=== PATIENT | male | born 1940 | race Caucasian/White ===

== ENCOUNTER 2018-12-06 10:04 | Day surgery (SDC) | payer MEDICARE, BC ==
[~2018-12-06] VITALS: Ht 167.6 cm; Wt 80.7 kg
[2018-12-06] VITALS (13 sets, daily range): BP systolic 101–137; BP diastolic 56–70; PULSE 53–100; RESP 13–22; Ht 167.6 cm; Wt 80.7 kg
--- NOTE | 2018-12-06 12:32 | PREAC ---
Date/Time of Note Date/Time of Note DATE: 12/06/18 TIME: 12:31 Anesthesia Eval and Record Evaluation Time Pre-Procedure Interview DATE: 12/06/18 TIME: 12:31 Age 78 Sex male NPO: 8 hrs Preoperative diagnosis AFIB Planned procedure MAMTA, cardioversion Past Medical History Past Medical History: Includes Cardio: HTN, Dyslipidemia, CAD, Arrythmia (afib), CHF Heme: Other (on eliquis) Surgery & Anesthesia Issues No known issue Meds Anticoagulation: No Beta Norman within 24 hr: No Reason Beta Norman not given: Pt. not on B-Norman Meds reviewed: Yes Allergies Coded Allergies: No Known Allergy (Unverified , 12/06/18) Allergies Reviewed: Yes Labs/Studies Labs Reviewed: Reviewed by anesthesiologist Result Diagram: 12/06/18 1126 Laboratory Tests 12/06/18 11:26 test: N/A Studies: ECG, CXR, 2D Echo Pre-procedure Exam Last vitals Vital Signs Date Temp Pulse Resp B/P (MAP) Pulse Ox O2 O2 Flow FiO2 Time Delivery Rate 12/06/18 98.8 53 18 137/65 98 Room Air 11:40 (89) Airway: Adequate mouth opening, Adequate thyromental dist Mallampati: Mallampati III Teeth: Normal Lung: Normal Heart: Normal ASA Physical Status ASA physical status: 4 Emergency: None Planned Anesthetic General/MAC: MAC Planned Pain Management Parenteral pain med Pre-operative Attestations Prior to commencing anesthesia and surgery, the patient was re-evaluated, there was verification of: *The patient's identity *The results of appropriate recent lab work and preoperative vital signs *The above evaluation not changing prior to induction *Anesthetic plan, risk benefits, alternative and complications discussed with patient/family; questions answered; patient/family understands, accepts and wishes to proceed. FATOU WALLACE MD Dec 06, 2018 12:32
[2018-12-06] MEDS ORDERED: ETOMIDATE 20 MG INJ ONE ×2 (12:35→12:36)
[2018-12-06] MEDS ORDERED: PROPOFOL 100 ML ONE (12:36)
[2018-12-06] MEDS ORDERED: APIX5TAB PO (13:41)
[2018-12-06] MEDS ORDERED: TAMS-14 PO (13:42)
[2018-12-06] MEDS ORDERED: LOSA25TA12 PO (13:42)
--- NOTE | 2018-12-06 13:55 | CARRPT ---
DATE OF PROCEDURE: 12/06/2018 TYPE OF PROCEDURES: 1. Transesophageal echo. 2. Direct current cardioversion for atrial fibrillation to sinus rhythm, successful. ATTENDING PHYSICIAN: Gabi Rubio MD INDICATION: Atrial fibrillation. TYPE OF ANESTHESIA: MAC under direction of anesthesiologist at bedside. BRIEF HISTORY: Mr. 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 DESCRIPTION OF PROCEDURE: After informed consent was obtained, the patient was brought to the [facility] cardiac catheterization lab where he was connected to continuous telemetry mon itoring, continuous O2 saturation monitoring and blood pressure cuff cycling every 3 minutes. The pa dae had a bite block placed in his mouth and was given propofol MAC anesthesia under the direction of the anesthesiologist at bedside. The patient had the transesophageal echo, intubated into the pat ient's esophagus and using multiplanar imaging and color flow Doppler interrogation, the patient's st ructures were adequately interrogated. The patient's block in place and received an initial sy nch shock at 100 joules and second transit converted the patient back in AFib. The patient received a second shock at 150 joules with successful conversion to sinus rhythm and 12-lead EKG was documente d which revealed sinus rhythm with first degree AV block. This completed the procedure. No noted co mplications. FINDINGS: 1. At the onset of procedure, the patient was in atrial fibrillation. Post-direct current cardiover dev, the patient converted to sinus rhythm, first AV block. 2. Transesophageal echo revealed no definite left atrial or left atrial appendage thrombus, left atr ial appendage velocity of less than 40 cm per second, spontaneous contrast within the patient's left atrial appendage and left atrium. 3. There is no intracardiac source of embolus noted. 4. The patient had appearance of mild to moderate systolic dysfunction. IMPRESSION: 1. No definite findings of left atrial or left atrial appendage thrombus. 2. Successful direct current cardioversion to sinus rhythm, first-degree AV block with a shock x2 in itially 100 and then subsequently 150 joules. RECOMMENDATIONS: 1. At this time, the patient will be allowed to completely awake from his anesthetized state. The p atient will be started on clear liquids and advance diet as tolerated back to full. 2. The patient will be continued on his baseline medications. 3. The patient will be okay for discharge when patient is tolerating full diet and anesthesia worn o ff. Dictated By: GABI MICHELLE/ALISHA Conf#: [id number] DID#: [id number] CC: BRIAN PARIKH MD;*End*
--- NOTE | 2018-12-06 14:08 | RADRPT ---
Vent Rate: 75 bpm RR Interval: 0 msec VA Interval: 388 msec QRS Duration: 84 msec QT Interval: 358 msec QTC Interval: 399 msec P-R-T [place]: 72 - 61 - 32 degrees Sinus rhythm with 1st degree AV block Low voltage QRS Nonspecific T wave abnormality Abnormal ECG Electronically Signed By: Yuval Han
--- NOTE | 2018-12-06 14:10 | RADRPT ---
Vent Rate: 51 bpm RR Interval: 0 msec SC Interval: 0 msec QRS Duration: 80 msec QT Interval: 430 msec QTC Interval: 396 msec P-R-T [place]: 0 - 54 - 67 degrees Atrial fibrillation with slow ventricular response Abnormal ECG Electronically Signed By: Yuval Han
--- NOTE | 2018-12-06 22:36 | PAC ---
Date/Time of Note Date/Time of Note DATE: 12/06/18 TIME: 22:35 Post-Anesthesia Notes Post-Anesthesia Note Last documented vital signs Vital Signs Date Temp Pulse Resp B/P (MAP) Pulse Ox O2 O2 Flow FiO2 Time Delivery Rate 12/06/18 98.3 60 16 101/61 96 Room Air 14:25 (74) Activity: WNL Respiratory function: WNL Cardiovascular function: WNL Mental status: Baseline Pain reasonably controlled: Yes Hydration appropriate: Yes Nausea/Vomiting absent: Yes FATOU WALLACE MD Dec 06, 2018 22:36
== END 2018-12-06 15:40 | disposition home or self-care (01) ==
LOC: SDS 10:04
PROVIDERS: ATTEND Internal Medicine
DX: I48.91 Unspecified atrial fibrillation (principal); I44.0 Atrioventricular block, first degree
CPT/HCPCS: 71045; 80048; 85025; 85610; 85730; 92960; 93005; 93312; 93320; 93325